=== PATIENT | female | born 1940 | race Caucasian/White ===

== ENCOUNTER 2016-10-04 23:57 | Inpatient (IN) | payer MEDICARE ==
[~2016-10-04] VITALS: Ht 152.4 cm; Wt 52.0 kg
[2016-10-05] VITALS (11 sets, daily range): BP systolic 90–149; BP diastolic 43–80; PULSE 71–156; RESP 14–22; O2SAT 94–99
[2016-10-05] MEDS ORDERED: Diltiazem 5 mg/mL 5 mL Inj ONE (00:07)
--- NOTE | 2016-10-05 00:13 | ED.REPORT ---
HPI-Chest Pain 40 and Over Date of Service Oct 05, 2016 ED Provider: Dyllan Samson Pt is an otherwise healthy 76 year old female who presents to the ED complaining of chest pain onset yesterday. She c/o associated bilateral arm pain , bilateral ear pain, and neck pain. She denies sensation to palpation, and reports that the chest pain started mild a couple weeks ago. denies a history of A-fib. She denies taking blood thinners aside from Aspirin. Nursing Notes Stated Complaint: CHEST PAIN Chief Complaint: Dysrhythmia/Cardiac Nursing Notes Reviewed: Yes Allergies: Coded Allergies: Sulfa (Sulfonamide Antibiotics) (Verified Allergy, Unknown, severe headache, 10/05/16) clindamycin (Verified Allergy, Unknown, extreme nausea, 10/05/16) nicardipine (Verified Allergy, Unknown, rash, 10/05/16) General Time Seen by MD: 00:13 Chief Complaint Chest pain Hx Obtained From: Patient Arrived By: Walk-in Sudden in Onset?: No Onset Occurred: Yesterday Symptom Duration: Since onset Location: : Substernal Quality: Painful Severity: Current: Moderate Severity: Maximum: Moderate Recent Healthcare: No recent doctor visit, No recent hospitalization Similar Sx Previous: No Past Medical History Past Medical History Denies Denies: Congestive heart failure, Diabetes mellitus, Hypertension Past Surgical History Back Bilaterally leg vein Reports: Appendectomy, Cholecystectomy, Hysterectomy, Tonsillectomy Smoking History Unknown if Ever Smoker Social History Denies Alcohol Use: Denies alcohol use Drug Use: Denies drug use Other Social History: Good social support Review of Systems Respiratory: Denies: Non-productive cough Cardiovascular: Reports: Chest pain Musculoskeletal: Reports: Extremity pain, Neck pain Complete sys rev & neg: except as marked. Ears / Nose / Throat: Reports: Earache left, Earache right Physical Exam Initial Vital Signs Vital Signs (First) Date Time Temp Pulse Resp B/P Pulse Ox O2 Delivery O2 Flow Rate FiO2 10/05/16 00:06 37.1 156 14 149/80 94 Room Air 10/05/16 01:48 2 Initial VS: Reviewed ENT: Mucous membranes moist, Conjunctiva normal, No scleral icterus Neck: Supple, Full range of motion Extremities: Vascular intact, Neuro intact Skin: Warm, Dry, No cyanosis Neurologic: Alert, Oriented, Nonfocal Psychiatric: Mood/affect normal, Behavior normal General/Constitutional: Awake, Alert, Cooperative, Not toxic appearing Respiratory / Chest: Atraumatic, Breath sounds NL, Breath sounds = bilat Cardiovascular: Heart rate NL, Regular rhythm, Heart sounds NL CARDIOVASCULAR: Irregularly irregular pulse Abdomen: Atraumatic, Soft, Non-tender Interpretation & Diagnostics Lab Results Interpretation Result Diagram: 10/05/16710/05/168 Test 10/05/16 00:08 White Blood Count 9.1th/mm3 (3.8-10.1) Red Blood Count 4.02mil/mm3 (3.90-5.20) Hemoglobin 13.0g/dL (12.0-15.6) Hematocrit 39.1% (35.0-46.0) Mean Corpuscular Volume 97.3fL (81-100) Mean Corpuscular Hemoglobin 32.3pg (27.0-35.0) Mean Corpuscular Hemoglobin Concent 33.2% (32.0-37.0) Red Cell Distribution Width 12.6% (12.3-15.4) Platelet Count 188bil/L (150-400) Neutrophils (%) (Auto) 67.2% (40-74) Lymphocytes (%) (Auto) 17.6% (14-46) Monocytes (%) (Auto) 12.5% (4-12) Eosinophils (%) (Auto) 2.4% (0-5) Basophils (%) (Auto) 0.2% (0-3) Hold Purple Top Tube Received (Received) Sodium Level 137mEq/L (134-144) Potassium Level 4.4mEq/L (3.5-5.2) Chloride Level 96mEq/L (97-108) Carbon Dioxide Level 23mmol/L (18-29) Blood Urea Nitrogen 14mg/dL (8-27) Creatinine 0.88mg/dL (0.57-1.00) Estimat Glomerular Filtration Rate 90mL/min (>59) Glucose Level 100mg/dL (60-99) Calcium Level 10.0mg/dL (8.5-10.1) Magnesium Level 1.9mg/dL (1.6-2.6) Total Bilirubin 0.3mg/dL (0.0-1.2) Aspartate Amino Transf (AST/SGOT) 30U/L (0-50) Alanine Aminotransferase (ALT/SGPT) 17U/L (0-32) Alkaline Phosphatase 66U/L (25-165) Troponin T 0.010ug/L (0.0-0.011) Pro-B-Type Natriuretic Peptide 2110pg/mL (0-738) Total Protein 8.4g/dL (6.4-8.4) Albumin 4.7g/dL (3.4-5.0) Thyroid Stimulating Hormone (TSH) 2.770uIU/mL (0.450-4.500) Hold [place] Top Tube Received (Received) General Lab Results Interp 1: Labs reviewed, Labs reviewed and NL, Complete met profile NL, CBC normal Pulse Oximetry Interpretation Pulse Oximetry: Pulse Ox normal ECG Interpretation ECG Interpretation: Atrial fibrillation with rapid V-rate Repolarization abnormalit, probably rate related Time: 00:07 Interpreted by: ED physician ECG Interpretation: Sinus rhythm with a rate of 83 Time: 01:32 Interpreted by: ED physician Rhythm Strip Interpretation : Rhythm Strip Interpretation: Interpreted by me, Atrial fibrillation Cardiac / Vascular Lab Interp BNP elevated, Troponin normal X-Ray Chest Interpretation Chest Xray Interpretation: Normal Interpretation / Wet Read by: Wet read ED physician Re-Eval/Medical Decision Med Decision/Clinical Course This is a very pleasant 76-year-old female who was had nonspecific palpitations and chest tightness for a couple weeks. She presented the emergency department atrial fibrillation and rapid ventricular response. She was initiated on IV Cardizem. It became aware to us that she had a reaction to the car to pain in the past. Evidently she had a rash on her ankles and the nicardipine. She had no problems with the Cardizem. Heart rate was brought down about 70 however she did spike back up to 1:30. She is intermittently in sinus and intermittently in A. fib. Laboratory work is mildly elevated a nitric peptide otherwise normal. She is going to be admitted for rate control and and can consider cardioversion and anticoagulation. Source of Hx: Old records Time of Eval: 00:13 Patient Status: Condition improved, Complete relief Evaluation: Capillary refill improved, Normal peripheral pulses, Extremities warm Re-Evaluation/Progress Note: Pt rechecked. Pt informed of plan for admit. Pt understands and agrees with plan for admission. All questions were answered. Consultation : Referral / Consult Name: Mariaa Griffith DO Consulted With: Hospitalist Call Returned at: 01:40 Watchmaking Teacher: Will see patient, Agrees with eval, Agrees with plan, Accepts admit Counseled Regarding: Diagnosis, Lab results, Need for admission Discharge & Departure Shift Change Sign-Out Response to Therapy: Improved Primary Impression: Atrial fibrillation with rapid ventricular response Additional Impression: Chest pain Chest pain type: unspecified Qualified Code: R07.9 - Chest pain, unspecified Disposition: ADMITTED TO HOSPITAL Discharge Condition All VS Reviewed: Yes Condition: Stable Referrals: [facility] Crit Care Except Billable Proc Time Spent: 135-164 minutes Services Performed: Patient management by me, Time spent at bedside, Reviewing test results, Reviewing imaging, Discussing patient care, Documentation in record, Time with fam/surrogate Scribe Attestation Portions of this note were transcribed by Tereza Zamora. I, Dr. Samson personally performed the history, physical exam and medical decision-making; I reviewed and confirmed the accuracy of the information in the transcribed note. Signed by: Ibis Guzmán, 10/05/16 and 01:50. copies to: [facility] Dyllan Samson DO Oct 05, 2016 00:13 Tereza Loera Oct 05, 2016 00:59
[2016-10-05] MEDS ORDERED: Diltiazem 5 mg/mL 5 mL Inj IVPUSH ONE (00:20)
[2016-10-05] MEDS ORDERED: Diltiazem Inj 125 MG in 0.9% Sodium Chloride 100 ML, Pharmacy To Mix 1 EA IV SCH (00:20)
[2016-10-05 00:38] LABS: BASOPHILS % (AUTO) 0.2 % (0-3); EOSINOPHILS % (AUTO) 2.4 % (0-5); MONOCYTES % (AUTO) 12.5 % (4-12); Mean Corpuscular Hemoglobin 32.3 pg (27.0-35.0); Mean Corpuscular Volume 97.3 fL (81-100); NEUTROPHILS % (AUTO) 67.2 % (40-74); Platelet Count 188 bil/L (150-400)
[2016-10-05] MEDS: fentaNYL-PF 50 mCg/mL 2 mL Inj IVPUSH PRN ×2 (01:09→03:00)
[2016-10-05 01:27] LABS: Magnesium 1.9 mg/dL (1.6-2.6); TROPONIN T 0.01 ug/L (0.0-0.011)
[2016-10-05] MEDS ORDERED: Polyethylene Glycol (PEG) 17 Gm Powder PO PRN (04:05)
[2016-10-05] MEDS ORDERED: Alum-Mag Hydrox-Simeth 30 mL Suspension PO PRN (04:05)
[2016-10-05] MEDS ORDERED: Ondansetron 2 mg/mL 2 mL Inj IVPUSH PRN (04:05)
--- NOTE | 2016-10-05 04:46 | PCM.HPMED ---
Subjective Date of Service Oct 05, 2016 Primary Provider: Admitting Physician: Mariaa Griffith DO Primary Care Physician: Other,Physician Attending Physician: Mariaa Griffith DO Admit Status: From the Emergency Department Chief Complaint: Left shoulder arm pain, shortness of breath History of Present Illness: 76-year-old woman with osteoarthritis, chronic migraines on topiramate, history of non-Hodgkin's lymphoma in remission for nearly 10 years, presents with 3 weeks of worsening left arm pain with radiation into her neck, and worsening shortness of breath over the last day. Her and her are both at their summer home next [place], typically live in the [facility]. Patient has not experienced anything like this before, pain is currently 8 out of 10. No nausea, vomiting, diarrhea. Denies the sensation of palpations or heart racing. Patient described being almost pain-free while in the emergency department until she went for CT when transferring onto the bed using her arm pain once again returned. Vitals on presentation 37.1, 156, 14, 149/80, and 94% on room air CBC was unremarkable, CMP was unremarkable. BNP 2110, TSH 2.77, troponin negative X-ray did not show any acute cardiopulmonary process CT angiography did not show evidence of pulmonary embolism or aortic dissection. She received diltiazem drip, converted to normal sinus rhythm, she was admitted to the hospital for monitoring, echocardiogram in the morning, and for discussion regarding long-term anticoagulation. Review of Systems: A comprehensive review of systems was conducted with the patient and found to be negative except as above in the history of presenting illness. Allergies Coded Allergies: Sulfa (Sulfonamide Antibiotics) (Verified Allergy, Unknown, severe headache, 10/05/16) clindamycin (Verified Allergy, Unknown, extreme nausea, 10/05/16) nicardipine (Verified Allergy, Unknown, rash, 10/05/16) Home Medications Alendronate Sodium 70 mg once time a week Paroxetine 40 mg 1 time a day Vitamin D 2000 international units daily Gabapentin 300 mg 4 times a day Sumatriptan 100 mg as needed for migraine Topiramate 50 mg 2 times a week for migraine prevention ASA 81 daily Glucosamine twice a day Calcium supplement 2 times a day Multivitamin once a day Antioxidants Fish oil twice a day Tumor once a day PMH Chronic migraines Non-Hodgkin's lymphoma, in remission for almost 10 years Osteoarthritis Chronic low back pain Endometriosis Cholecystitis status post cholecystectomy Osteoporosis Surgical History Cholecystectomy Tonsillectomy Total hysterectomy Appendectomy Family History Mother and father both had chronic migraines. Mother multiple TIAs, rheumatoid arthritis Social History Hx Alcohol Use: No Hx Substance Use: No Hx Tobacco Use: No Smoking Status: Never Smoker Living Arrangement: with Family (with ) Exam Vital Signs Vital Sign - Last Date Time Temp Pulse Resp B/P Pulse Ox O2 Delivery O2 Flow Rate FiO2 10/05/16 04:37 71 18 110/65 96 Room Air 10/05/16 01:48 36.5 2 Exam General: Laying in bed, no apparent distress. Appropriate affect HEENT: Normocephalic, atraumatic, EOMI grossly, because membranes moist, conjunctiva pink, neck supple without lymphadenopathy Cardiovascular: Regular rate and rhythm, faint, 2/6 systolic murmur heard best left upper sternal border, peripheral pulses 2/4 equal bilaterally Pulmonary: Clear to auscultation bilaterally, no W/R/R. Good respiratory effort GI: Soft to palpation, bowel sounds present 4, no hepatosplenomegaly. Negative rebound. : no taveras in place Extremities: No edema appreciated. No tenderness, asymmetry. Skin: no erythema, rash or ecchymosis present, warm and dry Neuro: Neurologically grossly intact, strength is equal bilaterally upper and lower extremities. MSK: Able to move extremities on their own volition, strength 5 out of 5 equal bilaterally to upper and lower extremities. Psych: Oriented person place time and situation, often having trouble word finding. Lymph: no cervical or supraclavicular lymphadenopathy Lab and Diagnostics Result Diagram: 10/05/16 0008 10/05/16 0008 X-Rays, CTs and MRIs Angio thoracic CT, performed 10/05/2016 Conclusion: No evidence of pulmonary embolism or aortic dissection. Minimal pericardial effusion. Radiologist Missy Hensley M.D., operations supervisor 2nd shift radiology report. 12-lead ECG EKG October 02 12:07 AM Atrial fibrillation with rapid ventricular rate, rate 148, QTC 426, no signs of acute infarct or ischemia. EKG October 05 1:32 AM Sinus rhythm, rate 83, normal axis, no signs of acute infarct, ischemia, IVCD, QTC 402, MT 129. Assessment & Plan 76-year-old woman with chronic migraines, osteoporosis, resents with 3 weeks of worsening left arm pain, new onset shortness of breath, with some lightheadedness, evaluation showed her to be in atrial fibrillation with RVR, she responded to diltiazem drip, but pain and left arm persisted along with shortness of breath, underwent pulmonary embolism evaluation which was negative. Acute new onset paroxysmal atrial fibrillation with RVR, resolved Received diltiazem IV and drip, converted without any electrocardioversion. Received 324 mg aspirin in the emergency department Not anticoagulated Echocardiogram in the morning TSH normal Troponin negative Discontinuing diltiazem drip, monitor on telemetry for recurrence of atrial fibrillation. Discussion of risk and benefits of long-term anticoagulation was deferred given the late hour of admission. I reviewed chest x-ray and EKGs personally and independently and agree with the interpretation of the emergency room physician. Ongoing left arm pain, present on admission, active Patient describes shooting pain in her left arm and going on for 3 weeks that radiates up into her neck, treatment of her atrial fibrillation did not resolve this pain, possibly radicular in nature, though she states it starts in her brachium and moves proximal. Follow-up evaluation as an outpatient. Given morphine for pain. Has history of non-Hodgkin's lymphoma, chest CT did not demonstrate noticeable lymphadenopathy. Chest CT was read independently and personally, that [facility]. dyspnea, acute, POA -patient with acute dyspnea over the 24 hours prior to admission -elevated BNP, concerning for CHF 2/2 atrial fibrillation ongoing -ECHO ordered as above. Elevated blood glucose, acute, POA -mildly elevated, likely 2/2 stress -hgbA1c pending Patient is admitted to observation status, anticipate less than 2 midnights based on presenting symptoms, complexity of care, and anticipated risk of adverse events. Pain Evaluation: Pain not Controlled GI Prophylaxis: Proton Pump Inhibitor, Not indicated VTE Prophylaxis: Sub-Q Heparin (Unfractionated) Resuscitation Status: CPR: Attempt Resuscitation Attending Statement The patient was seen and examined together with house staff on 10/05/2016 and I agree with the history, exam and plan as outlined in the note above. Smooth Canales DO Oct 05, 2016 04:46 Mariaa Griffith DO Oct 05, 2016 05:57
[2016-10-05 05:00] LABS: APPEARANCE,URINE CLEAR (CLEAR,HAZY); COLOR,URINE YELLOW (YELLOW)
[2016-10-05 05:01] LABS: OCCULT BLOOD,URINE SMALL (NEGATIVE); UROBILINOGEN,URINE NORMAL (NORMAL)
[2016-10-05 05:07] LABS: BASOPHILS % (AUTO) 0.1 % (0-3); EOSINOPHILS % (AUTO) 0.6 % (0-5); MONOCYTES % (AUTO) 14.9 % (4-12); Mean Corpuscular Hemoglobin 31.8 pg (27.0-35.0); Mean Corpuscular Volume 98.5 fL (81-100); NEUTROPHILS % (AUTO) 75.1 % (40-74); Platelet Count 174 bil/L (150-400)
[2016-10-05 05:25] LABS: Magnesium 1.8 mg/dL (1.6-2.6)
[2016-10-05] MEDS ORDERED: Ketorolac 15 mg/mL Inj IVPUSH ONE (06:05)
--- NOTE | 2016-10-05 06:48 | NUR ---
admit note pt admitted to 2019 on tele and cardizem gtt from er per monster at 0445, pt a/o times three, very attentive here upon admit, pleasant particular couple, admit info done per information given by pt, copy of pt's meds taken, will hand off to day shift for med rec form, tele- sr, hr 70's, cardizem gtt discontinued per md order, md did not want to follow up with po cardizem, pt denies cardiac chest pain, pt c/o left arm, shoulder.neck pain, increasing with movement and deep breath, pt requesting fentanyl for pain, md aware of pt's map in 50's, ultram and toradol ordered, not available from pharmacy yet, will pass on to day shift rn, pt denies nv, pt denies sob, ls-cl/decreased, shallow respirations, hnv, see admit charting, plan: monitor pt's tele for recurrent afib,
--- NOTE | 2016-10-05 08:00 | DRSVH ---
PROCEDURE: X-RAY CHEST ONE VIEW, PORTABLE ([id number]) INDICATIONS: tachycardia TECHNIQUE: One view of the chest was acquired. COMPARISON: None. FINDINGS: Surgical changes and devices: Surgical clips right upper quadrant. Levoconvex thoracolumbar scoliosis . Degenerative right a.c. joint disease. Old healed fracture right proximal humerus.. Lungs and pleura: No pleural effusions or pneumothorax. Lungs are clear. Mediastinum: Mediastinal contours appear normal. Heart size is normal. Bones and chest wall: No suspicious bony lesions. Overlying soft tissues appear unremarkable. IMPRESSION: 1. No acute cardiopulmonary abnormality. Dictated by: Moy Cutler M.D. on 10/05/2016 at 7:57 Approved by: Moy Cutler M.D. on 10/05/2016 at 7:58
--- NOTE | 2016-10-05 08:19 | DRSVH ---
PROCEDURE: CT ANGIO CHEST PULMONARY EMBOLISM ([id number]) INDICATIONS: tachycardia, pleuritic chest pain, hx of lymphoma TECHNIQUE: After the administration of intravenous contrast, 2 mm thick sections acquired from the pulmonary api isak to the posterior costophrenic angles. 3-dimensional maximum intensity projection (MIP) coronal a nd sagittal reformats were then acquired through the thorax. For radiation dose reduction, the follo wing was used: automated exposure control, adjustment of mA and/or kV according to patient size. COMPARISON: None. FINDINGS: Image quality: Excellent. Pulmonary arteries: Pulmonary arteries are normal in size, and demonstrate no intraluminal filling d efects to suggest central pulmonary embolism. Lungs and pleura: Lungs are clear. No pleural effusions or pneumothorax. Central and peripheral ai rways are patent. Mediastinum: Heart size is mildly enlarged, with a trace pericardial effusion. No mediastinal or hi lar adenopathy. Thoracic aorta is normal in caliber but insufficiently opacified for luminal evaluat ion. Esophagus is grossly normal in caliber, without hiatal hernia. Bones and chest wall: No suspicious bony lesions. Ribs and thoracic spine appear intact throughout. Thyroid gland is present with a subcentimeter right thyroid nodule which does not meet radiographic criteria for further evaluation. No axillary or supraclavicular adenopathy. Abdomen: Visualized upper abdominal solid organs appear normal in the early arterial phase of enhanc ement. IMPRESSION: 1. No acute pulmona in with the preliminary report. Dictated by: Mehdi Díaz M.D. on 10/05/2016 at 8:06 Approved by: Mehdi Díaz M.D. on 10/05/2016 at 8:11
[2016-10-05] MEDS: Heparin 5,000 Unit/mL Inj SUBQ SCH ×2 (08:20→16:40)
[2016-10-05] MEDS ORDERED: HYDROcodone-APAP 5-325 mg Tablet PO PRN (10:25)
[2016-10-05] MEDS ORDERED: ALEN70TA2 PO (11:41)
[2016-10-05] MEDS ORDERED: CHOL100045 PO (11:42)
[2016-10-05] MEDS ORDERED: PARO40TA3 PO (11:42)
[2016-10-05] MEDS ORDERED: CETI10CA PO (11:43)
[2016-10-05] MEDS ORDERED: GABA600T2 PO (11:43)
[2016-10-05] MEDS ORDERED: CA C1TAB87 PO ×2 (11:45)
[2016-10-05] MEDS ORDERED: IMI100 PO (11:46)
[2016-10-05] MEDS ORDERED: TOPI50TA88 PO (11:47)
[2016-10-05] MEDS ORDERED: GLUC100016 PO (11:48)
[2016-10-05] MEDS ORDERED: ASPI-973 PO (11:48)
[2016-10-05] MEDS ORDERED: MULT1CAP33 PO (11:49)
[2016-10-05] MEDS ORDERED: CALC600T12 PO (11:49)
[2016-10-05] MEDS ORDERED: OMEG500C PO (11:49)
[2016-10-05] MEDS ORDERED: TURM500C7 PO (11:50)
--- NOTE | 2016-10-05 12:27 | DRSVH ---
[facility] [address] [place] [address] Echocardiogram Report Name: MARITZA ECHEVERRIA Date : 10/05/2016 Height: 60 in Hospital Exam Location: [facility] Weight: 115 lb Gender: Female BSA: 1.5 m2 : 1940 Age: 76 yrs BP: 102/43 mmHg Reason For Study: Atrial fibrillation Ordering Physician: HOSPITALIST [facility] Performed By: Raffaele Cleveland Referring Physician: MARSHALL FITZPATRICK Interpretation Summary The left ventricle is normal in size. The ejection fraction is estimated to be 60-65%. The right ventricle is normal in size and function. There is mild to moderate tricuspid regurgitation. The right ventricular systolic pressure is estimated at 26 mmHg assuming a right atrial pressure of 3 mm Hg. There is mild luminal irregularity and echogenicity in the abdominal aorta, suggestive of aortic atherosclerotic disease. There is a triangular shaped shadow seen in the aortic arch, attached to the superior surface and protruding in to the lumen which is not mobile. Could be an artifact however can not r/o large soft atherosclerotic plaque. Consider INNA. Procedure: A two-dimensional transthoracic echocardiogram with color flow and Doppler was performed. The study quality was technically adequate. There is no prior echocardiogram noted for this patient. The patient was in normal sinus rhythm during the exam. Left Ventricle: The left ventricle is normal in size. Proximal septal thickening is noted. There is no echo evidence for significant left ventricular outflow tract obstruction. There is no thrombus. The ejection fraction is estimated to be 60-65%. There are no focal wall motion abnormalities. Spectral Doppler of the mitral valve shows a normal E/A wave ratio. The E/E'is normal. Right Ventricle: The right ventricle is normal in size and function. Atria: Both atria are normal in size. The interatrial septum is intact with no evidence for an atrial septal defect. Mitral Valve: The mitral valve leaflets appear thickened, but open well. The mitral valve leaflets are slightly calcified. There is trace mitral regurgitation. Aortic Valve: The aortic valve is slightly calcified. The aortic valve opens well. The aortic valve is not well visualized. There is no aortic valve stenosis. No aortic regurgitation is present. Tricuspid Valve: The tricuspid valve leaflets are thin and pliable. There is mild to moderate tricuspid regurgitation. The right ventricular systolic pressure is estimated at 26 mmHg assuming a right atrial pressure of 3 mm Hg. Pulmonic Valve: The pulmonic valve is not well visualized. Great Vessels: The aortic root is normal size. The ascending aorta could not be visualized. The ascending aorta is normal in size. There is mild luminal irregularity and echogenicity in the abdominal aorta, suggestive of aortic atherosclerotic disease. There is a triangular shaped shadow seen in the aortic arch, attached to the superior surface and protruding in to the lumen which is not mobile. Could be an artifact however can not r/o large soft atherosclerotic plaque. Consider INNA. The pulmonary artery is not well visualized, but is probably normal size. The IVC is of normal diameter and collapses greater than 50% with a sniff. This suggests a low right atrial pressure of 3 mm Hg. Pericardium/ Pleura There is no pericardial effusion. There is no pleural effusion. MMode/2D Measurements & Calculations LVIDd: 4.4 cm RA long axis LVOT diam: 1.9 cm LVIDs: 3.3 cm LA A2 area: 13.2 cm AoV Opening FS: 24.4 % LA A4 area: 13.4 cm RA area IVSd: 0.91 cm LA length (vol) Ao root diam LVPWd: 1.0 cm : 12.7 cm LA vol: 32.8 ml RA vol Ao Arch Diam (Prox LA vol index : 29.4 ml Trans): 2.8 cm RA : 19.9 mm2 IVC diam: 1.5 cm LV nixon. diameter/BSA LV sys. diameter/BSA (cm/m^2): 3.0 (cm/m^2): 2.2 Doppler Measurements & Calculations Ao V2 max MV E max garland MV E/A: 2.1 TR max garland : 126.7 cm/sec : 87.7 cm/sec Med Peak E' Garland : 237.9 cm/sec Ao max PG MV A max garland TR max PG : 6.4 mmHg : 41.9 cm/sec E/E' med: 8.8 : 22.6 mmHg Ao mean PG MV P1/2t: 52.4 msec Lat Peak E' Garland PA V2 max : 60.8 cm/sec LVOT Max Garland E/E' lat: 6.9 PA mean PG : 106.7 cm/sec E/e' average: 7.8 : 1.0 mmHg MV A dur: 0.09 sec DANAE(I,D): 1.9 cm sev ratio MV dec time MV P1/2t max garland Ao V2 mean LV V1 max PG : 0.18 sec : 90.4 cm/sec MVA(P1/2t): 4.2 cm2 Ao V2 VTI: 26.9 cm LV V1 VTI DANAE(V,D): 2.4 cm2 : 18.4 cm PA V2 mean DANAE indexed to BSA : 48.5 cm/sec (cm^2/m^2): 1.3 PA pr(Accel) : 22.9 mmHg Reading Physician:GENNA
--- NOTE | 2016-10-05 14:36 | NUR ---
Social Work: Initial Assessment D: Per EMR review, pt is a 76 year old female admitted for afib r/o RVR, chest pain. Pt is AARP Medicare with no LTC or VA benefits. PCP is Charles Euceda. NOK is Pablo Shrestha, spouse, . Advanced directives requested. No RA Score entered. HAND OR MACHINE PASTER met with pt at bedside. Sw role explained and contact info provided. See initial assessment. Pt lives in a double story home on [address] with her spouse. Pt is I with ADLs, uses no DME and reports no issues navigating stairs. Pt has never had HH or skilled rehab, continues to drive and anticipates discharge home when ready. Pt's spouse will transport. A: Pt who is I at baseline. P: Anticipate pt to discharge home via POV; HAND OR MACHINE PASTER to continue to follow to assess for unmet needs. RONEN Rothman Addendum: 10/05/16 at 1441 by CHESTER GALLEGO Amended: Links added.
--- NOTE | 2016-10-05 15:53 | PCM.PNMED ---
Subjective Date of Service Oct 05, 2016 Subjective She is doing well. She does have pleuritic chest pain and some neck and arm pain. This was not exertional and was relatively acute on onset yesterday. Some dyspnea on exertion. She had one short run of paroxysmal atrial fibrillation overnight. This has not happened before. She denies a cough, no fevers or chills. No leg pain or swelling. The CT scan was negative for pulmonary embolism or pneumonia. Exam Vital Signs Vital Sign - Last Date Time Temp Pulse Resp B/P Pulse Ox O2 Delivery O2 Flow Rate FiO2 10/05/16 11:45 36.8 75 22 90/54 97 Room Air 10/05/16 01:48 2 Intake and Output 10/04/16 10/04/16 10/05/16 Cumulative From/Thru 15:00 23:00 07:00 10/05/16 00:06 - 10/05/16 06:29 Intake Total 225 ml 225 ml Output Total 0 ml 0 ml Balance 225 ml 225 ml Intake Oral 200 ml 200 ml IV Total 25 ml 25 ml Output Urine Total 0 ml 0 ml # Bowel Movements 0 0 Exam Alert and oriented -3, no distress. Fluent speech Anicteric sclera. Lungs are clear with normal rate and effort Heart is regular without murmur gallop or rub Abdomen soft nontender, flat Extremities are free of edema. Skin is free of rash or lesions. IVs and Medications Medications Reviewed: Medications were reviewed in detail Lab and Diagnostics Result Diagram: 10/05/16 0450 10/05/16 0450 X-Rays, CTs and MRIs Angio thoracic CT, performed 10/05/2016 Conclusion: No evidence of pulmonary embolism or aortic dissection. Minimal pericardial effusion. Radiologist Missy Hensley M.D., production shift supervisor radiology report. 12-lead ECG EKG October 02 12:07 AM Atrial fibrillation with rapid ventricular rate, rate 148, QTC 426, no signs of acute infarct or ischemia. EKG October 05 1:32 AM Sinus rhythm, rate 83, normal axis, no signs of acute infarct, ischemia, IVCD, QTC 402, [place] 129. Assessment & Plan 76-year-old woman with chronic migraines, osteoporosis, resents with 3 weeks of worsening left arm pain, new onset shortness of breath, with some lightheadedness, evaluation showed her to be in atrial fibrillation with RVR, she responded to diltiazem drip, but pain and left arm persisted along with shortness of breath, underwent pulmonary embolism evaluation which was negative. Acute new onset paroxysmal atrial fibrillation with RVR, resolved Received diltiazem IV and drip, converted without any electrocardioversion. Received 324 mg aspirin in the emergency department Not anticoagulated She will continue to monitor. She now remains in sinus rhythm. #. Chest pain, pleuritic with left arm pain, present on admission, active and improving. Patient describes shooting pain in her left arm and going on for 3 weeks that radiates up into her neck, treatment of her atrial fibrillation did not resolve this pain, possibly radicular in nature, though she states it starts in her brachium and moves proximal. Follow-up evaluation as an outpatient. Given morphine for pain. Has history of non-Hodgkin's lymphoma, chest CT did not demonstrate noticeable lymphadenopathy. CT angios negative for pulmonary embolism. No history of radiation therapy for lymphoma. two troponins negative, we will continue to observe and send a third troponin. She remains clinically stable and improved over I will treat her for pleuritic chest pain of unclear etiology and sent her out with pain medication and follow-up. #. dyspnea, acute, POA and improving. -patient with acute dyspnea over the 24 hours prior to admission -elevated BNP, concerning for CHF 2/2 atrial fibrillation ongoing -ECHO ordered and pending. Elevated blood glucose, acute, POA -mildly elevated, likely 2/2 stress -hgbA1c pending Patient is admitted to inpatient status, anticipate less than 2 midnights based on presenting symptoms, complexity of care, and anticipated risk of adverse events. GI Prophylaxis: Proton Pump Inhibitor, Not indicated VTE Prophylaxis: Sub-Q Heparin (Unfractionated) Resuscitation Status: CPR: Attempt Resuscitation Rolf Bernabe MD Oct 05, 2016 15:53
--- NOTE | 2016-10-05 17:56 | NUR ---
Pain/activity Initially this morning patient complained of 5/10 right should/chest pain which was aggravated with taking deep breaths. Patient was medicated with single dose of IV toradol 15mg this brought her pain to 3-4/10. Patient was given a PO dose of Ultram 25mg X1- this brought her pain to 0-1/10. Patient was able to ambulate to the bathroom well with stand bay assist and this evening patient ambulated around [facility]CCU hallways one time around. She tolerated the activity well and remained in a chair afterwards. Patient did not have any complaints of pain with and following this activity- continue assessment.
[2016-10-06] VITALS (13 sets, daily range): BP systolic 96–137; BP diastolic 44–84; PULSE 72–140; RESP 16–22; O2SAT 95–100
[2016-10-06] MEDS: Heparin 5,000 Unit/mL Inj SUBQ SCH ×2 (00:43→09:07)
--- NOTE | 2016-10-06 06:49 | NUR ---
CP/SOB Pt had no discomfort during entire shift. No complaints of CP or SOB. No concerns voiced. Able to ambulate with SBA without issue.
--- NOTE | 2016-10-06 08:14 | NUR ---
VSS/Diltiazem gtt dc'd per nightshift/SR 70s/ A&Ox3; GROVER equally, up to BR w/ standby assist. States only has a slight "ache" in rib area when taking a "very large breath". Safety measures reviewed. Pt expressing hope that she will be discharged today.
--- NOTE | 2016-10-06 08:51 | NUR ---
0846:Recurrent Atrial Fib/rate 110-120 EKG ordered/MD notified.
[2016-10-06] MEDS ORDERED: Diltiazem 5 mg/mL 5 mL Inj ONE (08:59)
[2016-10-06] MEDS ORDERED: Diltiazem 5 mg/mL 5 mL Inj IVPUSH ONE (09:20)
--- NOTE | 2016-10-06 10:15 | NUR ---
0925:Diltiazem 10mg IV A-Fib RVR up to 130s prior to Diltiazem ivp, with left shoulder pain 5/10. BP 137/55. A-Fib rate down to 104-112 post Diltiazem ivp, pain in Lt shoulder down to 2/10. BP 117/57. Continue monitoring 1:1; pt states "I've been extremely worried about my not answering phone last night or this morning, now that he has finally answered just now I feel less stressed".
--- NOTE | 2016-10-06 12:25 | NUR ---
A Fib 140s when up @ bedside. notified.
--- NOTE | 2016-10-06 12:29 | PCM.PNMED ---
Subjective Date of Service Oct 06, 2016 Subjective She had been doing better but now has recurrent more severe pleuritic chest pain now more on the left side of her chest on the right. She somewhat anxious. No dyspnea. She went back into A. fib about a half hour before the pleuritic pain and does not like feeling palpitations or shortness of breath but is feeling anxious. He does spike up to 150s with movement. Again she denies any known history of paroxysmal A. fib in the past. No abdominal pain nausea or diarrhea. No other overnight events. Exam Vital Signs Vital Sign - Last Date Time Temp Pulse Resp B/P Pulse Ox O2 Delivery O2 Flow Rate FiO2 10/06/16 12:03 37.0 16 112/59 98 Nasal Cannula 2.00 10/06/16 09:55 112 Intake and Output 10/05/16 10/05/16 10/06/16 Cumulative From/Thru 15:00 23:00 07:00 10/05/16 00:06 - 10/06/16 04:35 Intake Total 900 ml 200 ml 1325 ml Output Total 600 ml 800 ml 1400 ml Balance 300 ml -600 ml -75 ml Intake Oral 900 ml 200 ml 1300 ml IV Total 25 ml Output Urine Total 600 ml 800 ml 1400 ml # Voids 2 2 # Bowel Movements 0 Exam Alert and oriented -3, no distress. Fluent speech Anicteric sclera. Lungs are clear with normal rate and effort Heart is irregular without murmur gallop or rub, mild tachycardia Abdomen soft nontender, flat Extremities are free of edema. Skin is free of rash or lesions. IVs and Medications Medications Reviewed: Medications were reviewed in detail Lab and Diagnostics Result Diagram: 10/05/1644910/05/16 0450 X-Rays, CTs and MRIs Angio thoracic CT, performed 10/05/2016 Conclusion: No evidence of pulmonary embolism or aortic dissection. Minimal pericardial effusion. Radiologist Missy Hensley M.D., shift supervisor rn radiology report. 12-lead ECG EKG October 02 12:07 AM Atrial fibrillation with rapid ventricular rate, rate 148, QTC 426, no signs of acute infarct or ischemia. EKG October 05 1:32 AM Sinus rhythm, rate 83, normal axis, no signs of acute infarct, ischemia, IVCD, QTC 402, [place] 129. Assessment & Plan 76-year-old woman with chronic migraines, osteoporosis, resents with 3 weeks of worsening left arm pain, new onset shortness of breath, with some lightheadedness, evaluation showed her to be in atrial fibrillation with RVR, she responded to diltiazem drip, but pain and left arm persisted along with shortness of breath, underwent pulmonary embolism evaluation which was negative. #. paroxysmal atrial fibrillation with RVR, POA. Had resolved butrecurred this morning. We will rate control her with oral diltiazem. Received diltiazem IV and drip, converted without any electrocardioversion. Received 324 mg aspirin in the emergency department Not anticoagulated She will continue to monitor. She now remains in sinus rhythm. She is requesting a cardiology opinion as well, her requested a cardiology consultation. #. Chest pain, pleuritic with left arm pain, present on admission, had improved but is now active again. Patient describes shooting pain in her left arm and going on for 3 weeks that radiates up into her neck, treatment of her atrial fibrillation did not resolve this pain, possibly radicular in nature, though she states it starts in her brachium and moves proximal. Follow-up evaluation as an outpatient. Given morphine for pain. Has history of non-Hodgkin's lymphoma, chest CT did not demonstrate noticeable lymphadenopathy. CT angios negative for pulmonary embolism. No history of radiation therapy for lymphoma. 3 troponins negative, we will request cardiology consultation. #. Hyperglycemia, POA. -mildly elevated, likely 2/2 stress -hgbA1c pending Patient is admitted to inpatient status, anticipate less than 2 midnights based on presenting symptoms, complexity of care, and anticipated risk of adverse events. GI Prophylaxis: Proton Pump Inhibitor, Not indicated VTE Prophylaxis: Sub-Q Heparin (Unfractionated) Resuscitation Status: CPR: Attempt Resuscitation Rolf Bernabe MD Oct 06, 2016 12:29
[2016-10-06] MEDS ORDERED: Diltiazem CD 120 mg ER24 Capsule PO SCH (13:00)
--- NOTE | 2016-10-06 17:18 | CONS ---
[address] [address] CONSULTATION REPORT PATIENT: MARITZA ECHEVERRIA : 1940 MR#: [id number] ADMIT: 10/05/2016 JOB ID: [id number] DATE OF SERVICE: 10/06/2016 REASON FOR EVALUATION: I have been asked by the hospitalists to see the patient for evaluation of pleuritic chest pain and paroxysmal atrial fibrillation. The patient states that two weeks ago, she had an episode in the late afternoon or early evening of fairly significant sharp pain in her left shoulder, which radiated up to the back of her left neck associated with some obvious pleuritic and positional chest discomfort and associated dyspnea since she could not take a deep breath in without aggravating her discomfort. She took an Aleve and her symptoms improved over a period of 15-30 minutes and subsequently she felt well. About a week later, she had a similar episode of discomfort again resolving after a brief period of time and relieved with Aleve. On of this last week her symptoms progressed and became severe, accompanied by significant dyspnea and anxiety and she presented to the emergency department for evaluation. She was noted to be in rapid atrial fibrillation at the time, and her evaluation in the emergency department demonstrated a normal O2 saturation on room air, normal blood work with a normal troponin and TSH level. Her chest x-ray was remarkable only for moderate lumbar spinal scoliosis and normal size heart. A CT pulmonary angiogram showed no evidence of pulmonary emboli. There were no significant pleural effusions and an echocardiogram demonstrated absence of pericardial effusion or regional wall motion abnormality or obvious valvular heart disease. She was treated with diltiazem for rate control and converted to normal sinus rhythm and felt well most of the day yesterday and was anticipating discharge home from the hospital today, when this morning at about 8:30, she developed recurrent atrial fibrillation, somewhat in conjunction with recurrent pleuritic and positional chest discomfort. Once again, her vital signs have remained unremarkable with the exception of her rapid atrial fibrillation. She is obviously totally unaware of symptoms associated with the atrial fibrillation. This patient has no past cardiac history. She lives a healthy lifestyle and generally is fairly active without symptoms of exertional dyspnea or chest discomfort. Her mother had a stroke and her father from sudden cardiac . PAST MEDICAL HISTORY: Includes treatment for anxiety. She has a history of previous appendectomy and cholecystectomy, as well as hysterectomy. She has never been treated for hypertension or diabetes and is a lifelong nonsmoker. SOCIAL HISTORY: The patient and her live in [place] as their primary residence but summer at [place] here. She does not drink and uses no other drugs. REVIEW OF SYSTEMS: Is notable for the absence of any bleeding issues. She states that she bruises very easily. 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 She denies any cough or sputum production or hemoptysis. She has no recent history of fevers or chills or flu-like symptoms. PHYSICAL EXAM: On physical examination, this is a somewhat anxious-appearing female, 5 feet tall and 115 pounds. Body mass index of 22.6. Blood pressures have generally ranged in the 120 range. O2 saturation is normal. Heart rates have been variable but over the day today, ranged between 100 and 150 beats per minute with periods of fib/flutter with a more regular rate but mostly in atrial fibrillation. HEENT examination is unremarkable. Jugular venous pressure looks normal. Carotid upstroke is normal. No carotid bruits. Lung auguste are clear. I do not hear any obvious pleural rubs, although she does have some degree of pleuritic suprascapular and supraclavicular discomfort with deep inspiration. Cardiac examination is notable for a rapid irregular rhythm. I do not hear a pericardial friction rub. Abdomen is unremarkable. Distal extremities are warm and well perfused. Distal pedal pulses are normal. No significant lower extremity edema. She has some mild arthritic changes in both hands but no other musculoskeletal abnormalities. LABORATORY DATA: Notable for moderate anemia this morning. Her white count is slightly elevated as well at 12.5 thousand. Blood sugar was mildly elevated on admission. Her electrolytes, BUN and creatinine were normal. Liver function tests were normal. Troponin normal. A 12-lead EKG initially showed rapid atrial fibrillation with some degree of fib/flutter as well. Subsequent EKG showed normal sinus rhythm with no significant ECG changes. Chest x-ray, CT scan, and echocardiogram are all reviewed, as mentioned above. IMPRESSION: The patient clearly has pleurisy. She had some mild pleurisy symptoms a couple weeks ago and then a week ago with more persistent severe symptoms in the last several days. There is no indication of pericarditis or acute myocardial injury. The etiology of the pleurisy is likely viral. She also on exam has point tenderness over the top of her left shoulder and over the medial aspect of the shoulder as well. Atrial fibrillation may have been precipitated by viral syndrome and pleuritis. It may be that she has a history of intermittent atrial fibrillation that she is unaware of, given the paucity of symptoms associated with atrial fibrillation or during her hospital stay. She clearly needs rate control and anticoagulation. I have suggested that we use one of the new anticoagulant medications. I have also recommended that we use verapamil for rate control. There are some reports that suggest there may be electrical remodeling of the atrium in patients with paroxysmal atrial fibrillation that may benefit from verapamil. In any event, we will go ahead and initiate verapamil therapy today. The two new anticoagulants which are not affected by verapamil metabolism would be Xarelto and and will go ahead and initiate therapy with Xarelto 20 mg daily. If she is doing well tomorrow, I think she could be discharged home as long as her heart rate is reasonably well controlled, hopefully on 180 mg a day of verapamil. I have recommended that she follow up with her primary care provider in a couple of weeks for followup. He can then determine if she has recurrent persistent atrial fibrillation, and if so, whether or not establishing with a inspector [employer] near their home town of [place] is appropriate. I hope these thoughts are helpful with the patient's care. It was a pleasure meeting her and I am happy to assist as needed in the future.
[2016-10-06] MEDS ORDERED: Benzocaine-Menthol Lozenge 2/Pkg PO PRN (22:00)
[2016-10-07 03:49] VITALS: BP 114/52; PULSE 75; RESP 14; O2SAT 97
[2016-10-07 04:44] VITALS: PULSE 75
--- NOTE | 2016-10-07 05:28 | NUR ---
Tele Patient converted to SR at change of shift. Patient unaware of change. Other vitals stable. Continue to monitor.
[2016-10-07] MEDS ORDERED: Verapamil SR 180 mg ER12 Tablet PO SCH (08:30)
[2016-10-07 08:51] VITALS: PULSE 72
[2016-10-07 09:23] VITALS: BP 108/43; PULSE 70; RESP 18; O2SAT 96
--- NOTE | 2016-10-07 10:58 | PCM.DIMED ---
Discharge Instructions Date of Service Oct 07, 2016 Dates of Hospitalization Oct 05, 2016 at 02:28 Discharge Diagnosis Discharge Diagnosis #. Paroxysmal atrial fibrillation, stable. #. Pleurisy, improving. Diet Discharge Diet: No restrictions Activity Discharge Activity: No restrictions Call your provider Call your provider for: Shortness of breath, Chest pain Patient Instructions Patient Instructions Please see your PCP, Dr Rider within 2 weeks Follow-up with PCP in: 2 weeks Rolf Bernabe MD Oct 07, 2016 10:58
[2016-10-07] MEDS ORDERED: VRP180TCR PO (11:01)
[2016-10-07] MEDS ORDERED: HYDR-4003 PO (11:01)
[2016-10-07] MEDS ORDERED: RIVA20TA PO (11:01)
--- NOTE | 2016-10-07 11:52 | NUR ---
Discharge pt. dc'd at 1150 this am. Medications reviewed with patient and ; hard copy of prescription with patient; carenotes regarding new medications printed for patient; no questions. Discharge instructions reviewed with pt. and ; no questions. Pt. to make f/u appt. with pcp on saturday when office open; verbalized understanding. PIV dc'd; catheter intact; vss; tele sinus rhythm; denied cp or pressure; c/o mild left shoulder discomfort pt. still rated at 0/10. Belongings with . Escorted to private vehicle via w/c by chartered wealth manager.
--- NOTE | 2016-10-07 11:58 | NUR ---
Social Work Note: Discharge Data& Assessment: Per pt is medically ready to discharge. Wilma Shrestha is a 76 year old female admitted on 10/05/2016 for AFIB with RVR and chest pain. Pt met with safety director and hospitalist, per pt is medically improved and ready to discharge home via POV. No other discharge needs identified. Plan: Per pt is medically ready to discharge home via POV. Pt transporting pt home. No other discharge needs identified. RONEN Franco
--- NOTE | 2016-10-07 12:17 | PCM.DC.MED ---
Discharge Summary Date of Service Oct 07, 2016 Dates of Hospitalization Date of Hospital Admission Oct 05, 2016 at 02:28 Date of Discharge: Oct 07, 2016 Providers: Admitting Physician: Rolf Ramos MD Primary Care Physician: Other,Physician Attending Physician: Rolf Ramos MD Diagnosis at Time of Discharge Diagnosis at Time of Discharge #. Paroxysmal atrial fibrillation, stable. #. Pleurisy, improving. Consultations Cardiology, Dr. Coats Procedures XRay, CTs & MRIs Angio thoracic CT, performed 10/05/2016 Conclusion: No evidence of pulmonary embolism or aortic dissection. Minimal pericardial effusion. Radiologist Missy Hensley M.D., shift superintendent radiology report. ECG 12 Lead EKG October 02 12:07 AM Atrial fibrillation with rapid ventricular rate, rate 148, QTC 426, no signs of acute infarct or ischemia. EKG October 05 1:32 AM Sinus rhythm, rate 83, normal axis, no signs of acute infarct, ischemia, IVCD, QTC 402, PA 129. Cardiac Echo Impression Echocardiogram Report Name: MARITZA ECHEVERRIA Date : 10/05/2016 Height: 60 in Hospital Exam Location: [facility] Weight: 115 lb Gender: Female BSA: 1.5 m2 : 1940 Age: 76 yrs BP: 102/43 mmHg Reason For Study: Atrial fibrillation Ordering Physician: [facility] Performed By: Raffaele Cleveland Referring Physician: MARSHALL FITZPATRICK Interpretation Summary The left ventricle is normal in size. The ejection fraction is estimated to be 60-65%. The right ventricle is normal in size and function. There is mild to moderate tricuspid regurgitation. The right ventricular systolic pressure is estimated at 26 mmHg assuming a right atrial pressure of 3 mm Hg. There is mild luminal irregularity and echogenicity in the abdominal aorta, suggestive of aortic atherosclerotic disease. There is a triangular shaped shadow seen in the aortic arch, attached to the superior surface and protruding in to the lumen which is not mobile. Could be an artifact however can not r/o large soft atherosclerotic plaque. Consider INNA. Procedure: A two-dimensional transthoracic echocardiogram with color flow and Doppler was performed. The study quality was technically adequate. There is no prior echocardiogram noted for this patient. The patient was in normal sinus rhythm during the exam. Left Ventricle: The left ventricle is normal in size. Proximal septal thickening is noted. There is no echo evidence for significant left ventricular outflow tract obstruction. There is no thrombus. The ejection fraction is estimated to be 60-65%. There are no focal wall motion abnormalities. Spectral Doppler of the mitral valve shows a normal E/A wave ratio. The E/E'is normal. Right Ventricle: The right ventricle is normal in size and function. Atria: Both atria are normal in size. The interatrial septum is intact with no evidence for an atrial septal defect. Mitral Valve: The mitral valve leaflets appear thickened, but open well. The mitral valve leaflets are slightly calcified. There is trace mitral regurgitation. Aortic Valve: The aortic valve is slightly calcified. The aortic valve opens well. The aortic valve is not well visualized. There is no aortic valve stenosis. No aortic regurgitation is present. Tricuspid Valve: The tricuspid valve leaflets are thin and pliable. There is mild to moderate tricuspid regurgitation. The right ventricular systolic pressure is estimated at 26 mmHg assuming a right atrial pressure of 3 mm Hg. Pulmonic Valve: The pulmonic valve is not well visualized. Great Vessels: The aortic root is normal size. The ascending aorta could not be visualized. The ascending aorta is normal in size. There is mild luminal irregularity and echogenicity in the abdominal aorta, suggestive of aortic atherosclerotic disease. There is a triangular shaped shadow seen in the aortic arch, attached to the superior surface and protruding in to the lumen which is not mobile. Could be an artifact however can not r/o large soft atherosclerotic plaque. Consider INNA. The pulmonary artery is not well visualized, but is probably normal size. The IVC is of normal diameter and collapses greater than 50% with a sniff. This suggests a low right atrial pressure of 3 mm Hg. Pericardium/ Pleura There is no pericardial effusion. There is no pleural effusion. Invasive Procedures None Brief History 76-year-old woman with osteoarthritis, chronic migraines on topiramate, history of non-Hodgkin's lymphoma in remission for nearly 10 years, presents with 3 weeks of worsening left arm pain with radiation into her neck, and worsening shortness of breath over the last day. Her and her are both at their summer home next [place], typically live in the [facility]. Patient has not experienced anything like this before, pain is currently 8 out of 10. No nausea, vomiting, diarrhea. Denies the sensation of palpations or heart racing. Patient described being almost pain-free while in the emergency department until she went for CT when transferring onto the bed using her arm pain once again returned. Vitals on presentation 37.1, 156, 14, 149/80, and 94% on room air CBC was unremarkable, CMP was unremarkable. BNP 2110, TSH 2.77, troponin negative X-ray did not show any acute cardiopulmonary process CT angiography did not show evidence of pulmonary embolism or aortic dissection. She received diltiazem drip, converted to normal sinus rhythm, she was admitted to the hospital for monitoring, echocardiogram in the morning, and for discussion regarding long-term anticoagulation. Hospital Course 76-year-old woman with chronic migraines, osteoporosis, resents with 3 weeks of worsening left arm pain, new onset shortness of breath, with some lightheadedness, evaluation showed her to be in atrial fibrillation with RVR, she responded to diltiazem drip, but pain and left arm persisted along with shortness of breath, underwent pulmonary embolism evaluation which was negative. #. paroxysmal atrial fibrillation with RVR, POA. Had resolved butrecurred this morning. We will rate control her with oral diltiazem. Received diltiazem IV and drip, converted without any electrocardioversion. Received 324 mg aspirin in the emergency department Not anticoagulated She will continue to monitor. She now remains in sinus rhythm. She is requesting a cardiology opinion as well, her requested a cardiology consultation. #. Chest pain, pleuritic with left arm pain, present on admission, had improved but is now active again. Patient describes shooting pain in her left arm and going on for 3 weeks that radiates up into her neck, treatment of her atrial fibrillation did not resolve this pain, possibly radicular in nature, though she states it starts in her brachium and moves proximal. Follow-up evaluation as an outpatient. Given morphine for pain. Has history of non-Hodgkin's lymphoma, chest CT did not demonstrate noticeable lymphadenopathy. CT angios negative for pulmonary embolism. No history of radiation therapy for lymphoma. 3 troponins negative, we will request cardiology consultation. #. Hyperglycemia, POA. -mildly elevated, likely 2/2 stress -hgbA1c pending Hospital course. She was admitted for atypical pleuritic chest pain. A CT angiogram was negative for PE. She notes her paroxysmal A. fib both the time of admission and on day #2. This resolved in each case. A 2-D echo was fairly unremarkable. She was seen by cardiology with working diagnosis of pleurisy and paroxysmal A. fib. Recommendations were for rate control and not on anticoagulant. On the day of discharge she was doing much better. She was using hydrocodone as needed for chronic shoulder pain and her pleuritic pain. She also did have paroxysmal atrial fibrillation while in the hospital. She initially had A. fib in the ER which then broke and had a subsequent episode. She did well with rate control and recommendations from cardiology were for rate control and anticoagulation. Exam Vital Signs (Last) Date Time Temp Pulse Resp B/P Pulse Ox O2 Delivery O2 Flow Rate FiO2 10/07/16 09:23 36.3 70 18 108/43 96 Room Air 10/06/16 12:03 2.00 Exam Patient was seen and examined on the day of discharge Test 10/05/16 00:08 10/05/16 02:15 10/05/16 04:00 10/05/16 04:50 Hold Purple Top Tube Received (Received) Pro-B-Type Natriuretic Peptide 2110pg/mL (0-738) Thyroid Stimulating Hormone (TSH) 2.770uIU/mL (0.450-4.500) Hold [place] Top Tube Received (Received) D-Dimer 0.70mg/L FEU (<0.50) Urine Color Yellow (YELLOW) Urine Appearance Clear (CLEAR,HAZY) Urine pH 7.0 (5.0-8.0) Urine Specific [place] 1.010 (1.003-1.035) Urine Protein Negativemg/dL (NEG,TRACE) Urine Glucose (UA) Negativemg/dL (NEGATIVE) Urine Ketones Negativemg/dL (NEGATIVE) Urine Occult Blood Small (NEGATIVE) Urine Nitrite Negative (NEGATIVE) Urine Bilirubin Negative (NEGATIVE) Urine Urobilinogen Normalmg/dL (NORMAL) Urine Leukocyte Esterase Negative (NEGATIVE) Urine RBC 3-10/hpf (0-2) Urine WBC 0-5/hpf (0-5) Urine Epithelial Cells Occasional/hpf (NONE-MOD) Urine Crystals None seen (NONE SEEN) Urine Bacteria Few/hpf (NONE-FEW) Urine Hyaline Casts None/lpf (NONE) Urine Granular Casts None seen (NONE SEEN) Urine Waxy Casts None seen (NONE SEEN) Urine Red Blood Cell Casts None seen (NONE SEEN) Urine White Blood Cell Casts None seen (NONE SEEN) Urine Mucus None seen (None Seen) Urine Trichomonas None seen (NONE SEEN) Urine Yeast None (NONE SEEN) Urinalysis Comment None Urine Culture Reflexed Not indicated White Blood Count 12.5th/mm3 (3.8-10.1) Red Blood Count 3.24mil/mm3 (3.90-5.20) Hemoglobin 10.3g/dL (12.0-15.6) Hematocrit 31.9% (35.0-46.0) Mean Corpuscular Volume 98.5fL (81-100) Mean Corpuscular Hemoglobin 31.8pg (27.0-35.0) Mean Corpuscular Hemoglobin Concent 32.3% (32.0-37.0) Red Cell Distribution Width 12.5% (12.3-15.4) Platelet Count 174bil/L (150-400) Neutrophils (%) (Auto) 75.1% (40-74) Lymphocytes (%) (Auto) 9.1% (14-46) Monocytes (%) (Auto) 14.9% (4-12) Eosinophils (%) (Auto) 0.6% (0-5) Basophils (%) (Auto) 0.1% (0-3) Sodium Level 136mEq/L (134-144) Potassium Level 4.6mEq/L (3.5-5.2) Chloride Level 98mEq/L (97-108) Carbon Dioxide Level 25mmol/L (18-29) Blood Urea Nitrogen 15mg/dL (8-27) Creatinine 0.79mg/dL (0.57-1.00) Estimat Glomerular Filtration Rate 102mL/min (>59) Glucose Level 130mg/dL (60-99) Calcium Level 9.1mg/dL (8.5-10.1) Magnesium Level 1.8mg/dL (1.6-2.6) Total Bilirubin 0.4mg/dL (0.0-1.2) Aspartate Amino Transf (AST/SGOT) 19U/L (0-50) Alanine Aminotransferase (ALT/SGPT) 12U/L (0-32) Alkaline Phosphatase 53U/L (25-165) Total Protein 6.9g/dL (6.4-8.4) Albumin 3.8g/dL (3.4-5.0) Hold [place] Top Tube Received (Received) Test 10/06/16 09:17 10/06/16 10:17 Troponin T 0.010ug/L (0.0-0.011) Discharge Medications Discharge Medications Alendronate Sodium (Fosamax) 70 Mg Tablet 70 MG PO WEEKLY (Reported) Ca Carbonate/Vitamin D3/Vit K (Citracal Soft Chew) 1 Each Tab.chew 4 EACH PO DAILY (Reported) Ca Carbonate/Vitamin D3/Vit K (Citracal Soft Chew) 1 Each Tab.chew 3 EACH PO HS (Reported) Calcium Carbonate (Calcium) 600 Mg Tablet 600 MG PO BID (Reported) Cetirizine HCl (Zyrtec) 10 Mg Capsule 10 MG PO DAILY (Reported) Cholecalciferol (Vitamin D3) (Vitamin D) 1,000 Unit Capsule 2,000 UNIT PO DAILY (Reported) Gabapentin (Gabapentin) 600 Mg Tablet 600 MG PO BID (Reported) Glucosamine Sulfate 2Kcl (Glucosamine) 1,000 Mg Tablet 2,000 MG PO DAILY ( Reported) Multivitamin (Multivitamins) 1 Each Capsule 1 EACH PO DAILY (Reported) [place]-3 Fatty Acids (Fish Oil) 500 Mg Capsule.dr 500 MG PO BID (Reported) Paroxetine (Paroxetine) 40 Mg Tablet 40 MG PO DAILY (Reported) Rivaroxaban (Xarelto) 20 Mg Tablet 20 MG PO DAILY Prescribed by: ROLF RAMOS MD Topiramate (Topiramate) 50 Mg Tablet 50 MG PO twice per week (Reported) Turmeric Root Extract (Turmeric) 500 Mg Capsule 500 MG PO DAILY (Reported) Verapamil ER (Calan SR) 180 Mg Tablet 180 MG PO DAILY Prescribed by: ROLF RAMOS MD As needed Hydrocodone-Acetaminophen 5-325 mg (Hydrocodone-Acetaminophen 5-325 mg) 1 Each Tablet 1 TABLET PO Q4H PRN PRN For Pain Prescribed by: ROLF RAMOS MD Sumatriptan (Imitrex) 100 Mg Tablet 100 MG PO DAILY PRN PRN For Headache ( Reported) Followup Plan Disposition: Home Discharge Diet: No restrictions Discharge Activity: No restrictions Patient Instructions Please see your PCP, Dr Rider within 2 weeks Follow-up with PCP in: 2 weeks Time spent 40 minutes Rolf Ramos MD Oct 07, 2016 12:16
== END 2016-10-07 11:45 | disposition home or self-care (01) | DRG 310 ==
LOC: SED 23:57 → PCC 10-05 02:28
PROVIDERS: ADMIT Hospitalist; ATTEND Hospitalist
DX: I48.0 Paroxysmal atrial fibrillation (principal); R09.1 Pleurisy; Z79.82 Long term (current) use of aspirin; R73.09 Other abnormal glucose